=== PATIENT | male | born 1955 | race Caucasian/White ===

== ENCOUNTER 2020-05-24 12:44 | Emergency (ER) | payer OTHER ==
--- NOTE | 2020-05-24 13:24 | EDM.PDOC ---
ED HPI GENERAL MEDICAL PROBLEM - General Chief Complaint: ENT Problem Stated Complaint: PAINFUL TONGUE AND SORES UNDER TONGUE Time Seen by Provider: 05/24/20 13:10 Source of Information: Reports: Patient History Limitations: Reports: No Limitations - History of Present Illness INITIAL COMMENTS - FREE TEXT/NARRATIVE: 64-year-old male with a painful right tongue, and sore throat. He has had symptoms for 3 days, no fevers or chills but is been getting harder to eat. He has not had any trauma or symptoms like this in the past. Denies any shortness of breath or cough. Onset: Gradual Duration: Day(s): (3 days) Location: Reports: Other (Right side of tongue and throat) Worsens with: Reports: Eating, Other (Swallowing is painful) Associated Symptoms: Denies: Chest Pain, Fever/Chills, Malaise, Nausea/Vomiting, Shortness of Breath, Weakness Oral/Mouth Pain Score (Numeric/FACES): 8 - Related Data Allergies Allergy/AdvReac Type Severity Reaction Status Date / Time meperidine [From Demerol] Allergy Vomiting Verified 05/24/20 13:03 morphine Allergy Vomiting Verified 05/24/20 13:03 Home Meds: Home Meds NK [No Known Home Meds] 05/24/20 [History] Past Medical History HEENT History: Reports: None Cardiovascular History: Reports: None Respiratory History: Reports: None Gastrointestinal History: Reports: None Genitourinary History: Reports: None Musculoskeletal History: Reports: Arthritis Neurological History: Reports: None Psychiatric History: Reports: None Endocrine/Metabolic History: Reports: None Hematologic History: Reports: None Immunologic History: Reports: None Oncologic (Cancer) History: Reports: None Dermatologic History: Reports: None - Infectious Disease History Infectious Disease History: Reports: Measles - Past Surgical History GI Surgical History: Reports: None Musculoskeletal Surgical History: Reports: None Social & Family History - Tobacco Use Smoking Status *Q: Current Every Day Smoker Years of Tobacco use: 30 Packs/Tins Daily: 0.2 - Caffeine Use Caffeine Use: Reports: Coffee - Recreational Drug Use Recreational Drug Use: No ED ROS ENT - Review of Systems Review Of Systems: See Below Constitutional: Denies: Fever, Chills HEENT: Reports: Throat Pain. Denies: Dental Pain, Rhinitis Respiratory: Denies: Shortness of Breath Cardiovascular: Denies: Chest Pain GI/Abdominal: Denies: Abdominal Pain, Nausea, Vomiting Skin: Reports: No Symptoms Neurological: Denies: Headache ED EXAM, ENT - Physical Exam Exam: See Below Exam Limited By: No Limitations General Appearance: Alert, No Apparent Distress Mouth/Throat: Other (Patient has a round irregular white lesion just over 1 cm wide on the right lateral aspect of the tongue. It is moderately tender to palpation. I do not see any other objective lesions on that mucosa. Pharynx is mildly erythematous, no palatal petechiae or exudate. No cervical adenopathy.) Respiratory/Chest: No Respiratory Distress Neurological: Alert, Oriented Psychiatric: Normal Affect, Normal Mood Course - Vital Signs Last Recorded V/S: Last Vital Signs Temp 98.1 F 05/24/20 13:01 Pulse 80 05/24/20 13:01 Resp 16 05/24/20 13:01 BP 117/82 05/24/20 13:01 Pulse Ox 97 05/24/20 13:01 - Orders/Labs/Meds Orders: Active Orders 24 hr Category Date Time Status CULTURE STREP A CONFIRMATION [RM] Routine Lab 05/24/20 13:20 Results STREP SCRN A RAPID W CULT CONF [RM] Routine Lab 05/24/20 13:20 Results - Re-Assessments/Exams Free Text/Narrative Re-Assessment/Exam: 05/24/20 13:23 Rapid strep was obtained for completeness. This lesion looks concerning, it does not appear to be typical healing aphthous ulcer. If his strep is negative will be placed on viscous lidocaine and encouraged to recheck with ENT when he gets home in 2 days. 05/24/20 13:50 Strep was negative, patient was given viscous lidocaine and will recheck in 2 days when home. Departure - Departure Time of Disposition: 13:51 Disposition: Home, Self-Care 01 Clinical Impression: Lesion of tongue Pharyngitis Qualifiers: Pharyngitis/tonsillitis etiology: unspecified etiology Qualified Code(s): J02.9 - Acute pharyngitis, unspecified - Discharge Information Instructions: Sore Throat, [id number] Referrals: PCP,None [Primary Care Provider] - Forms: ED Department Discharge Care Plan Goals: Swallowing numbing medicine as directed for the next 2 to 3 days, and recheck when home. Sepsis Event Note (ED) - Evaluation Sepsis Screening Result: No Definite Risk - Focused Exam Vital Signs: Vital Signs Temp Pulse Resp BP Pulse Ox 05/24/20 13:01 98.1 F 80 16 117/82 97 - My Orders Last 24 Hours: My Active Orders 05/24/20 13:20 CULTURE STREP A CONFIRMATION [RM] Routine STREP SCRN A RAPID W CULT CONF [] Routine - Assessment/Plan Last 24 Hours: My Active Orders 05/24/20 13:20 CULTURE STREP A CONFIRMATION [] Routine STREP SCRN A RAPID W CULT CONF [] Routine
== END 2020-05-24 13:54 | disposition home or self-care (01) ==
LOC: JP.ED 12:44
DX: J02.9 Acute pharyngitis, unspecified (principal); K14.8 Other diseases of tongue; F17.210 Nicotine dependence, cigarettes, uncomplicated; Z88.5 Allergy status to narcotic agent
CPT/HCPCS: 87081; 87880-QW; 99283